=== PATIENT | female | born 1955 | race Caucasian/White ===

== ENCOUNTER 2020-01-14 18:06 | Observation (INO) | payer MEDICARE ==
[2020-01-14] MEDS ORDERED: Promethazine HCl 25 MG/ML VIAL ONE (19:00)
[2020-01-14 19:34] LABS: Troponin I 0.122 ng/mL (< 0.028)
[2020-01-14 21:03] VITALS: BMI 28.0
[2020-01-14] MEDS ORDERED: Ondansetron PF 4 MG/2 ML Vial IVP PRN ×2 (21:23→22:09)
[2020-01-14] MEDS ORDERED: Ondansetron ODT 4 MG TAB SL PRN (21:23)
[2020-01-14] MEDS ORDERED: Calcium Carbonate 500 MG ChewTAB PO PRN (22:09)
[2020-01-14] MEDS ORDERED: Ondansetron ODT 4 MG TAB PO PRN (22:09)
[2020-01-14] MEDS ORDERED: Acetaminophen 650 MG Suppository PR PRN (22:09)
[2020-01-14] MEDS ORDERED: Zolpidem Tartrate 5 MG TAB PO PRN (22:09)
[2020-01-14] MEDS ORDERED: Dexamethasone 4 mg/ml Vial SLOW IVP SCH (22:15)
--- NOTE | 2020-01-14 22:18 | PDOC.FPRHP ---
- History of Present Illness Chief Complaint: Chest pain History of Present Illness: Patient is a 65 yo female who presents after chest pain started around 1300 today. She says the pain was dull, located substernal with no radiation. The pain became gradually worse then around 1700 suddenly became sharp & stabbing accompanied by SOB, dizziness, headache. This pain radiated to neck and back, and she described it as the worst pain of her life. Patient days she has had multiple episodes in the past 3-4 years of intermittent dull chest pain that lasts for few minutes at a time and self-resolves, not associated with any activity or rest, says the pains in past "come out of the blue". Patient says she has been told in past she has high blood pressure but has never seen a physician for treatment. She says she prefers to treat her BP on her own using the supply of her mother's medications along with some medications from her sister. The only one of these medications names she remembers is Lunesta. ED Course: Given ASA, Metoprolol, Nitro, Morphine, Zofran, Phenergan, IVF. Patient began to have nausea & vomiting after initial morphine dose was given in [place] ED and has had continued symptoms here without relief after multiple doses of Zofran & Phenergan. - Allergies/Adverse Reactions Allergies Allergy/AdvReac Type Severity Reaction Status Date / Time codeine AdvReac Nausea Verified 01/14/20 20:56 morphine AdvReac Nausea Verified 01/14/20 20:56 - Home Medications Medication Instructions Recorded Confirmed Type Aspirin [Ecotrin Low Strength] 81 mg PO DAILY 01/14/20 01/14/20 History Atorvastatin Calcium [Lipitor] 40 mg PO HS #30 tab 01/15/20 Rx Lisinopril [Zestril] 10 mg PO HS #30 tab 01/15/20 Rx - History PMHx: HTN, Hep C hx, TB hx, Substance abuse hx PSHx: left leg repaired with pins in 2011 FHx: mother lymphoma age 85, father lung cancer age 65. father with CAD. Social: Former smoker, quit about 20 years ago (started age 13, smokes 2pk/day at [facility]). Denies EtOH use. - Review of Systems General: denies: fever/chills, weight/appetite/sleep changes, fatigue Eyes: denies: vision changes ENT: denies: nasal congestion Respiratory: denies: cough, congestion, shortness of breath Cardiovascular: reports: chest pain. denies: palpitation, edema Gastrointestinal: reports: nausea, vomiting, abdominal pain. denies: diarrhea, constipation Genitourinary: denies: dysuria Skin: denies: rashes, lesions Musculoskeletal: denies: pain, swelling Neurological: denies: numbness, weakness - Vital signs BP: 192/93 HR: 104 RR: 21 Pox: 97% on RA Wt: 78 kg - Physical Exam Constitutional: NAD, awake, alert and oriented, well developed HEENT: normocephalic and atraumatic, EOMI, grossly normal vision, grossly normal hearing, MMM Neck: supple, no JVD Heart: RRR, pulses present, no edema -Heart: grade II/III systolic murmur at upper left sternal border Lungs: CTAB, no respiratory distress, good air movement, no rales/rhonchi, no wheezing Abdomen: soft, bowel sounds present -Abdomen: TTP in epigastic area Musculoskeletal: normal structure, normal tone Neurological: no focal deficit, normal sensation Skin: no rash/lesions, good turgor Heme/Lymphatic: no unusual bruising or bleeding Psychiatric: normal mood and affect, intact recent and remote memory FMR H&P: Results - Labs Result Diagrams: 01/15/20 02:15 01/15/20 02:15 FMR H&P: A/P - Problem List (1) Chest pain Status: Acute Code(s): R07.9 - CHEST PAIN, UNSPECIFIED Qualifiers: Chest pain type: unspecified Qualified Code(s): R07.9 - Chest pain, unspecified (2) History of substance abuse Status: Acute Code(s): F19.11 - OTHER PSYCHOACTIVE SUBSTANCE ABUSE, IN REMISSION (3) History of TB (tuberculosis) Status: Acute Code(s): Z86.11 - PERSONAL HISTORY OF TUBERCULOSIS (4) History of hepatitis C virus infection Status: Acute Code(s): Z86.19 - PERSONAL HISTORY OF OTHER INFECTIOUS AND PARASITIC DISEASES (5) Hypertension Status: Acute Code(s): I10 - ESSENTIAL (PRIMARY) HYPERTENSION Qualifiers: Hypertension type: essential hypertension Qualified Code(s): I10 - Essential (primary) hypertension - Plan Patient is a 65 yo female who presents with stypical chest pain is admitted for chest pain r/o #Atypical CP -indeterminate trop of 0.05, continue to trend. -Mg, Phos, TSH pending -Risk stratify with FLP -HEART score: 4 -plan for chemical stress test in AM -murmur on exam- echo pending -EKG showed NSR with no ST changes #N/V from Morphine: -did not improve with zofran or phenergan -start Reglan IV -8mg Decadron x 1 dose #Polycythemia: -Hgb 17.3 -daily ASA -peripheral blood smear ordered -will need more thorough w/u outpatient. #HTN -not currently on any meds, taking her daughters occasionally but unknown name -has also been taking her mother's Lunesta -received metoprolol 10mg at outside ED and hydralazine -start Lisinopril daily. #Hx of Hep C -last labs in 2017 show HCV not detected -says she received 3 months of treatment in past -known exposure from (IV drug abuse) #Hx of TB -treated with 1 year of medications #Hx of Substance Abuse -has been taking unknown medications from her mother, also taking some of her sister's medications - admits they have used IV drugs in past, did not specify which ones -check UDS Diet: NPO @ midnight for stress test DVT PPx: Lovenox GI Ppx: Protonix Code Status: Full Dispo: Stable, admitted to observation on telemetry unit. Checking labs, continue to monitor vitals. Anticipate discharge in <48 hours. FMR H&P: Upper Level - Plan Date/Time: 01/14/202217 IMily DO, have evaluated this patient and agree with findings/plan as outlined by biomedical engineering internship resident. Pertinent changes/additions are listed here. Pt is a 65 yo F presenting for chest pain, onset 1pm today. Reports several similar episodes over the past 3 years, however this has been the worst. CP epigastric/lower sternal area associated with n/v, SOB. Pain did not radiate. Given morphine in outside ED for pain which made her severely nauseated and continues to dry heave. Her CP is resolved at this time. She was also given a GI cocktail and nitro at outside ED which seemed to help. She has not seen a doctor in >8 years. ASA, nitro SL, metoprolol, phenergan, zofran, and nitro paste given at outside ED. Was given 500ml bolus and phenergan here in our ED. VS: 175/91, P92, R19, T97.6, O297, T97.6 PE: Gen: well developed, NAD HEENT: Moist MM Heart: RRR, 3/6 systolic murmur, Distal pulses 2+, no ttp of chest Lungs: CTAB, no wheezing. No increased work of breathing Abd: soft, nontender, BS+ Ext: no cyanosis or edema Skin: no rashes or wounds present Psych: AOx3, normal mood Pertinent Labs/Imaging: CTA- neg for PE CXR- No acute process WBC 12.8, Hgb17.3, Hct 54 Ddimer 0.67 Bicarb 19, AG 22, Cl 104, K 4.1, Na 141, Alb 4.9 Trop: 0.045, 0.122 UA negative with trace blood EKG: NSR, no ST changes A/P: Atypical CP: -indeterminate trop, continue to trend. -Mg, Phos, TSH pending -Risk stratify with FLP -HEART score: 4 -stress test in AM -murmur on exam- echo pending N/V from Morphine: -did not improve with zofran or phenergan -Reglan IV -8mg Decadron Polycythemia: -daily ASA -peripheral blood smear ordered -will need more thorough w/u outpatient. HTN -not currently on any meds, taking her daughters occasionally -received metoprolol 10mg at outside ED and hydralazine -start Lisinopril daily. Hx of Hep C -last labs in 2017 show HCV not detected TB, treated DVT PPx: Lovenox GI Ppx: Protonix Code Status: Full Addendum - Attending - Attending Attestation Date/Time: 01/14/20 1263 I personally evaluated the patient and discussed the management with Dr. Daniels and Dr. Liao I agree with the History, Examination, Assessment and Plan documented above with any addition or exceptions noted below. 65 yo female presents for intermittent and recurrent chest pain. Has been present intermittently for several years. Never this severe. Trops are indeterminate. Associated symptoms concerning for cardiac source. Will admit and place on tele. Will need stress. If negative will need ECHO to evaluate for structural causes. Trend labs and EKG. Adverse reaction to medication. Will continue to treat nausea and vomiting. Mild polycythemia. Likely related to smoking. Concern for hyperviscocity. No reported headaches. No family hx of PCV. Would encourage workout to rule out pathological causes. Jhonatan
[2020-01-14] MEDS: Metoclopramide HCl 10 MG/2 ML VIAL IVP SCH (22:19)
[2020-01-14] MEDS ORDERED: Lisinopril 10 MG TAB PO SCH (22:45)
[2020-01-14 22:49] LABS: Troponin I 0.116 ng/mL (< 0.028)
[2020-01-14] MEDS: Acetaminophen 325 MG TAB PO PRN (23:29)
[2020-01-14 23:32] LABS: Band 6 % (5-11); Hemoglobin 16.1 g/dL (12.0-16.0); Lymphocytes 9 % (21-51); MDiff Complete? YES; Mean Corpuscular HGB CONC 33.3 g/dL (32.0-36.0); Mean Corpuscular Hemoglobin 29.1 pg (27.0-31.0); Mean Corpuscular Volume 87.3 fL (78.0-98.0); Mean Platelet Volume 8.4 fL (7.4-10.4); Monocytes 2 % (0-10); Neutrophil 79 % (42-75); Platelet Count 228 thou/uL (130-400); Platelet Morphology Comment Appears Adequate; RBC Distribution Width 12.6 % (11.5-14.5); Reactive Lymphocytes 4 % (0-10); Red Blood Cell (RBC) Count 5.55 mill/uL (4.20-5.40)
[2020-01-15 00:08] LABS: Amphetamine Not Detected (NotDetected); Benzodiazepine Screen Detected (NotDetected); Cocaine Metabolite Screen Not Detected (NotDetected); Medtox Reader # READER 1; Methamphetamine Not Detected (NotDetected); Opiate Screen Detected (NotDetected); Phencyclidine (PCP) Not Detected (NotDetected); THC/Cannabinoid Screen Detected (NotDetected)
[2020-01-15 00:09] LABS: Barbiturates Screen Not Detected (NotDetected); Medtox Control Line Valid? VALID (VALID); Methadone Not Detected (NotDetected); Oxycodone Screen Not Detected (NotDetected); Tricyclic Screen Not Detected (NotDetected)
[2020-01-15] MEDS ORDERED: Dicyclomine 10 MG CAP PO SCH (01:30)
[2020-01-15] MEDS ORDERED: hydrALAZINE 20 MG/ML VIAL SLOW IVP SCH (01:30)
[2020-01-15 02:22] LABS: #Monocytes 0.1 thou/uL (0.11-0.59); #Neutrophils 11.8 thou/uL (1.40-6.50); %Basophils 0.2 % (0.0-1.0); %Eosinophils 0.2 % (0.0-10.0); %Lymphocytes 7.5 % (21.0-51.0); %Monocytes 0.4 % (0.0-10.0); %Neutrophils 91.7 % (42.0-75.0); Hemoglobin 16.4 g/dL (12.0-16.0); Mean Corpuscular HGB CONC 33.9 g/dL (32.0-36.0); Mean Corpuscular Hemoglobin 29.5 pg (27.0-31.0); Mean Corpuscular Volume 87.1 fL (78.0-98.0); Platelet Count 241 thou/uL (130-400); RBC Distribution Width 12.5 % (11.5-14.5); Red Blood Cell (RBC) Count 5.56 mill/uL (4.20-5.40); White Blood Cell (WBC) Count 12.9 thou/uL (4.8-10.8)
[2020-01-15 02:50] LABS: Troponin I 0.092 ng/mL (< 0.028)
[2020-01-15 02:52] LABS: ALT (SGPT) 18 U/L (8-55); AST (SGOT) 17 U/L (5-34); Albumin 4.7 g/dL (3.4-4.8); Alkaline Phosphatase 51 U/L (40-110); Anion Gap 15 mmol/L (10-20); BUN (Urea Nitrogen) 16 mg/dL (9.8-20.1); Bilirubin, Total 0.4 mg/dL (0.2-1.2); Calc. Creatinine Clearance 86 mL/min (70-130); Calcium 9.6 mg/dL (7.8-10.44); Carbon Dioxide 19 mmol/L (23-31); Cardiac Risk 3.9 (Less than 4.5); Chloride 105 mmol/L (98-107); Cholesterol 223 mg/dl (< 200 Desired); Estimated GFR-MDRD 72; Globulin 3.6 g/dL (2.4-3.5); Glucose 190 mg/dL (80-115); HDL Cholesterol 57 mg/dL (>60 Neg Risk); LDL Cholesterol, Calculated 152 mg/dL; Magnesium 1.7 mg/dL (1.6-2.6); Potassium 3.4 mmol/L (3.5-5.1); Protein, Total 8.3 g/dL (6.0-8.3); Sodium 136 mmol/L (136-145); Triglycerides 70 mg/dL (Less than 150)
[2020-01-15] MEDS: Metoclopramide HCl 10 MG/2 ML VIAL IVP SCH ×2 (05:04→13:12)
[2020-01-15] MEDS: Acetaminophen 325 MG TAB PO PRN ×2 (05:08→13:12)
--- NOTE | 2020-01-15 06:07 | PDOC.FM ---
- Subjective Subjective: Patient doing better this morning. Reports that her chest pain has improved. She has also ceased vomiting, as she has several episodes overnight. She continues to report of a slight headache. Discussed the consequences of taking another person's medications and encouraged her to follow up with a PCP in [facility], with [facility] being happy and willing to see her for BP monitoring/management. Patient agreeable at this time. - Objective Vital Signs & Weight: Vital Signs (12 hours) Temp Pulse Resp BP Pulse Ox 01/15/20 05:04 120 H 137/79 01/15/20 02:15 98.4 F 112 H 22 H 147/77 H 97 01/15/20 01:39 111 H 189/103 H 01/15/20 01:18 111 H 189/103 H 01/14/20 23:26 199/110 H 01/14/20 20:38 97.7 F 104 H 21 H 192/93 H 97 Weight Weight 78.97 kg I&O: 01/13/20 01/14/20 01/15/20 06:59 06:59 06:59 Intake Total 125 Output Total 600 Balance -475 Result Diagrams: 01/15/20 02:15 01/15/20 02:15 EKG Reviewed by me: Yes (sinus tach) Phys Exam - Physical Examination Constitutional: NAD HEENT: moist MMs, sclera anicteric Neck: supple, full ROM Respiratory: no wheezing, clear to auscultation bilateral Cardiovascular: RRR holosystolic murmur Gastrointestinal: soft, positive bowel sounds Musculoskeletal: no edema, pulses present Neurological: non-focal, moves all 4 limbs Psychiatric: normal affect, A&O x 3 Skin: no rash, normal turgor Dx/Plan (1) Chest pain Code(s): R07.9 - CHEST PAIN, UNSPECIFIED Status: Acute Qualifiers: Chest pain type: unspecified Qualified Code(s): R07.9 - Chest pain, unspecified (2) History of TB (tuberculosis) Code(s): Z86.11 - PERSONAL HISTORY OF TUBERCULOSIS Status: Acute (3) History of hepatitis C virus infection Code(s): Z86.19 - PERSONAL HISTORY OF OTHER INFECTIOUS AND PARASITIC DISEASES Status: Acute (4) History of substance abuse Code(s): F19.11 - OTHER PSYCHOACTIVE SUBSTANCE ABUSE, IN REMISSION Status: Acute (5) Hypertension Code(s): I10 - ESSENTIAL (PRIMARY) HYPERTENSION Status: Acute Qualifiers: Hypertension type: essential hypertension Qualified Code(s): I10 - Essential (primary) hypertension - Plan Plan: Patient is a 65 yo female who presents with atypical chest pain is admitted for: #Atypical CP -trops: 0.045>0.122>0.116>0.092 -TSH wnl 1.49 -FLP: triglycerides 70, chold 223, LDL 152, HDL 57 -ASCVD score 10.1%, will start on statin -HEART score: 4 -EKG showed NSR with no ST changes -chemical stress test today -echo pending #N/V from Morphine: -s/p zofran, phenergan, and Reglan IV -s/p 8mg Decadron x 1 dose -improved #Polycythemia: -Hgb 17.3 > 16.4 -daily ASA -peripheral blood smear pending -will need more thorough w/u outpatient. #HTN -not currently on any meds, taking her daughters occasionally: clonidine and losartan/HCTZ -has also been taking her mother's Lunesta -received metoprolol 10mg at outside ED and hydralazine -started on Lisinopril daily -hydralazine prn #Hx of Hep C -last labs in 2017 show HCV not detected -reportedly received 3 months of treatment in past -known exposure from (prior IV drug abuse) #Hx of TB -reportedly treated with 1 year of medications #Hx of Substance Abuse -has been taking medications that have not been prescribed to her - admits they have used IV drugs in past, did not specify which ones -UDS+ benzos, cannabis; opiates + likely from morphine she received at outside ED Diet: NPO for stress test DVT PPx: Lovenox GI Ppx: Protonix Code Status: Full Dispo: Stable, admitted to observation on telemetry unit. Stress test today. Echo pending Addendum - Attending - Attending Attestation Date/Time: 01/15/20 2113 I personally evaluated the patient and discussed the management with Dr. Messina I agree with the History, Examination, Assessment and Plan documented above with any addition or exceptions noted below.For stress testing today further outpatient evaluation polycythemia needed. Recommend US/doppler flow study r/o Renal artery stenosis regard HTN and increased H/H.
[2020-01-15 06:58] LABS: Hemoglobin A1c 6.1 % (4.0-6.0)
[2020-01-15 07:31] VITALS: TEMP 98.1
[2020-01-15] MEDS ORDERED: Enoxaparin Sodium 40 MG/0.4 ML SYRINGE SC SCH (09:00)
[2020-01-15] MEDS ORDERED: Aspirin 81 mg Enteric Coated Tablet PO SCH (09:00)
[2020-01-15] MEDS ORDERED: Potassium Chloride 20 MEQ TAB PO SCH (09:45)
--- NOTE | 2020-01-15 12:19 | ULT ---
BILATERAL RENAL ULTRASOUND: Date: 01/15/2020 HISTORY: Hypertension. Evaluation for renal artery stenosis. FINDINGS: Real-time imaging of the right and left kidneys were performed. The right kidney measures 10.3 cm in size and the left kidney measures 10.7 cm. No cyst, mass, or obstruction. DOPPLER EVALUATION WITH SPECTRAL ANALYSIS: Right renal artery velocity measurements are 109 cm/second, left 140 cm/second, and aortic velocities are 65 cm/second. The renal artery to aortic ratios on the right are 1.7 and on the left are 2.1. The resistive index on the right is 0.55 and on the left is 0.51. The bladder is incompletely distended at the time of this study. IMPRESSION: Slightly elevated velocities within the left renal artery, but no definite significant stenosis on th e basis of the resistive indexes or the velocity ratios. If there is a high clinical index of suspici on of renal artery stenosis, CT angiography may give additional information. POS: [facility]
[2020-01-15 13:20] VITALS: BP 164/86
--- NOTE | 2020-01-15 14:08 | NM ---
EXAM: NM Cardiac Stress W EF WF PROVIDED CLINICAL HISTORY: Typical chest pain COMPARISON: None FINDINGS: No significant reversible defect is seen between the stress and resting acquisitions. Rotating planar images demonstrate motion on stress acquisition. Gated images demonstrate hypokinesis of the septum and to a lesser extent involving the inferior left ventricular wall. There is also suggestion of minimal diminished thickening involving the inferior left ventricular wall. Calculated left ventricular ejection fraction is 62%. IMPRESSION: 1. Normal myocardial perfusion study without a significant reversible defect seen to suggest ischemia . 2. Hypokinesis involving the septum and to a lesser extent inferior left ventricular wall. In additio n, there is suggestion of minimal diminished wall thickening involving the inferior left ventricular wall. 3. Calculated left ventricular ejection fraction of 62%.
[2020-01-15] MEDS ORDERED: Regadenoson 0.4 MG/5 ML SYRINGE ONE (14:50)
[2020-01-15] MEDS ORDERED: Atorvastatin Calcium 40 MG TAB PO SCH (21:00)
[2020-01-15] MEDS ORDERED: Lisinopril 10 MG TAB PO SCH (21:00)
--- NOTE | 2020-01-16 11:49 | DIS ---
DATE OF ADMISSION: 01/14/2020 DATE OF DISCHARGE: 01/15/2020 ADMITTING RESIDENT: Galina Daniels DO ADMITTING ATTENDING: Ashley Ramírez MD DISCHARGE RESIDENT: Tatiana Messina MD DISCHARGE ATTENDING: Alexandr Kelley MD CONSULTS: None. PROCEDURES: None. IMAGIN. Stress test, nuclear medicine: Normal myocardial perfusion study without significant reversible defect seen to suggest ischemia. Hypokinesis involving the septum and to a lesser extent of inferior left ventricular wall. In addition, there is just a minimal diminished wall thickening involving the inferior left ventricular wall. Calculated left ventricular EF of 62%. 2. Renal ultrasound: Highly elevated velocities within the left renal artery, but no definite significant stenosis on the basis of the resistive indexes or the velocity ratios. If there is a high clinical index of suspicion of renal artery stenosis, CT angiography may give additional information. 3. Echocardiogram: EF is visually estimated at 60% to 65%. Normal left atrium. Left ventricular size is normal. Aortic valve leaflets are somewhat thickened. The aortic valve leaflets are not well visualized. Mild aortic stenosis is present. Mild aortic regurgitation is noted. PRIMARY DIAGNOSES: 1. Atypical chest pain. 2. Nausea and vomiting from morphine. 3. Polycythemia. SECONDARY DIAGNOSES: 1. Hypertension. 2. History of hepatitis C. 3. History of TB. 4. History of substance abuse. DISCHARGE MEDICATIONS: 1. 40 mg atorvastatin p.o. at bedtime. 2. 81 mg aspirin p.o. daily. 3. 10 mg lisinopril p.o. at bedtime. Discontinued medications; 1. Acetaminophen p.r.n. 2. Tums p.r.n. 3. Dicyclomine. 4. Dexamethasone. 5. Lovenox. 6. Reglan. 7. Zofran. 8. Protonix. 9. Potassium chloride. 10. Hydralazine. 11. Ambien. HISTORY OF PRESENT ILLNESS/HOSPITAL COURSE: The patient is a 65-year-old female with a past medical history of hypertension, hepatitis C, TB, substance abuse, who was presented to the ED after chest pain started that day, that was described as dull and then progressively turned into sharp pain. She had reported that the pain was intermittent throughout the last several years and was not associated with any activity or rest. The patient also reportedly has not seen a primary care physician in many years, and for her hypertension, was reportedly taking her mother's Lunesta because she thought that treated hypertension, as well as taking her sister's home blood pressure medication. The patient is allergic to morphine, but was given morphine at the outside ED for the chest pain and after that continuously vomited, so was treated with Reglan, Zofran, and steroids to help with nausea and vomiting. The patient was admitted to the hospital for an atypical chest pain workup. She was found to have an ASCVD score that qualified her for a statin, which was added to her regimen. Her troponins were trended and ultimately trended downward without reaching the threshold for NSTEMI. Her hemoglobin A1c came back at 6.1, and her TSH came back within normal limits. She was also found to have polycythemia with original hemoglobin of 16.1 and hematocrit of 48.4. Blood smear pathology notes erythrocytosis, which may be seen in hemoconcentration or as a true increase due to hypoxia. She was started on daily aspirin and it was suggested that she is to follow up as an outpatient for a more involved workup. She did have a reported history of hepatitis C and TB that are both resolved. She also had a history of substance abuse, and on UDS, she is positive for both benzos and cannabis. She is also positive for opiates, but she had received morphine in the outside ED before the urine drug screen was completed. For the patient's atypical chest pain, the patient had a stress test that was negative and an echo that was not suggestive of any heart failure. It is thought that the patient's chest pain may be related to GERD and/or musculoskeletal pain. The patient was evaluated on the day of discharge and found to be in stable condition, and she was encouraged to follow up with the primary care physician in the area to have better control of her hypertension and for a more thorough workup of her polycythemia. The patient was agreeable with the plan of care. DISPOSITION: Stable. DISCHARGE INSTRUCTIONS: 1. Location: Home. 2. Diet: Heart healthy. 3. Activity: As tolerated. 4. Followup: Follow up with an outside physician within 7 days. Consider possible hematology consult for polycythemia. Job ID: [id number] MTDD
--- NOTE | 2020-01-19 01:17 | EKG ---
Test Reason : Blood Pressure : / mmHG Vent. Rate : 097 BPM Atrial Rate : 097 BPM P-R Int : 170 ms QRS Dur : 084 ms QT Int : 384 ms P-R-T Axes : 057 052 038 degrees QTc Int : 487 ms Normal sinus rhythm Minimal voltage criteria for LVH, may be normal variant Borderline ECG Confirmed by LEEANNE STERLING DO ([id number]), photographic editor HARSHA JACQUES ([id number]) on 01/19/2020 1:17:33 AM Referred By: Confirmed By:LEEANNE STERLING DO
== END 2020-01-15 15:58 | disposition home or self-care (01) ==
LOC: ERS 18:06 → 2SW 20:43
PROVIDERS: ADMIT Student in an Organized Health Care Education/Training Program; ATTEND Student in an Organized Health Care Education/Training Program
DX: R07.89 Other chest pain (principal); D75.1 Secondary polycythemia; I10 Essential (primary) hypertension; F19.11 Other psychoactive substance abuse, in remission; F41.9 Anxiety disorder, unspecified; Z86.11 Personal history of tuberculosis; Z87.891 Personal history of nicotine dependence; Z79.82 Long term (current) use of aspirin; Z88.5 Allergy status to narcotic agent
CPT/HCPCS: 76770; 78452; 80061; 80306; 83036; 83735; 84100; 84484 ×2; 85007; 85027; 93005; 93017; 93306; 93975; 96360; 96365; 96375 ×2; 96376; 99285; A9500; G0378 ×2; 36415; 80053; 84443; 85025; 85060; J0360; J1100; J2405; J2550; J2765; J2785